=== PATIENT | male | born 1965 | race Native Hawaiian/Other Pacific Islander ===

== ENCOUNTER 2016-06-29 12:47 | Outpatient (CLI) | payer OTHER | END 2016-06-29 12:48 | disposition home or self-care (01) | DX: M94.261 Chondromalacia, right knee (principal); M25.761 Osteophyte, right knee; M94.262 Chondromalacia, left knee; M25.762 Osteophyte, left knee; S83.241A Other tear of medial meniscus, current injury, right knee, initial encounter; S83.242A Other tear of medial meniscus, current injury, left knee, initial encounter ==

== ENCOUNTER 2017-07-13 17:53 | Emergency (ER) | payer OTHER ==
[2017-07-13] MEDS ORDERED: AMOXICILLIN 250 MG CAPSULE PO STA (18:33)
--- NOTE | 2017-07-13 18:35 | ED Physician Documentation ---
PD HPI HEENT FB - Chief complaint Chief Complaint: Heent - History obtained from History obtained from: Patient - History of Present Illness Timing - onset: Other (He has had cough and cold symptoms more recently he has had right ear pain and he was digging out the right ear with a Q-tip and started to get some blood on the Q-tip. His hearing is muffled in that ear on the right. No fevers.) Review of Systems Constitutional: denies: Fever, Chills Ears: reports: Loss of hearing, Ear pain, Drainage/discharge Nose: reports: Rhinorrhea / runny nose, Congestion Throat: denies: Sore throat PD PAST MEDICAL HISTORY - Past Medical History Cardiovascular: Hypertension, High cholesterol GI: GERD - Past Surgical History Past Surgical History: Yes - Present Medications Home Medications: Ambulatory Orders Medication Instructions Recorded Confirmed Fluticasone [Flonase] 04/26/13 04/26/13 Lisinopril 20 mg PO DAILY 04/26/13 04/26/13 Meloxicam [Mobic] 0 mg PO DAILY 04/26/13 04/26/13 Simvastatin 20 mg PO DAILY 04/26/13 04/26/13 hydroCHLOROthiazide [Hydrodiuril] 25 mg PO DAILY 04/26/13 04/26/13 Famotidine [Pepcid] 20 mg PO BID #60 tablet 05/22/15 Omeprazole 05/22/15 Omeprazole [Prilosec] 20 mg PO DAILY #30 capsule. 05/22/15 Amoxicillin 500 mg PO TID #30 capsule 07/13/17 Ofloxacin [Floxin] 5 drops RIGHTEAR BID 7 Days drops 07/13/17 - Allergies Allergies/Adverse Reactions: Allergies Allergy/AdvReac Type Severity Reaction Status Date / Time No Known Drug Allergies Allergy Verified 04/26/13 08:54 - Social History Does the pt smoke?: No Smoking Status: Never smoker Does the pt drink ETOH?: Yes PD ED PE NORMAL - Vitals Vital signs reviewed: Yes - General General: Alert and oriented X 3, No acute distress - HEENT HEENT: PERRL, EOMI, Other (He has right otitis media, no obvious perforation but there is some dried blood in the canal more consistent with abrasion from the Q-tip than anything else.) - Neck Neck: Supple, no meningeal sign, No bony TTP - Neuro Neuro: Alert and oriented X 3, Normal speech - Psych Psych: Normal mood, Normal affect Results - Vitals Vitals: Vital Signs - 24 hr 07/13/17 18:05 Temperature 36 C L Heart Rate 102 H Respiratory 16 Rate Blood Pressure 135/94 H O2 Saturation 97 Oxygen O2 Source Room air Departure - Departure Disposition: Home, Self Care Clinical Impression: ROM (right otitis media) Qualifiers: Otitis media type: suppurative Chronicity: acute Recurrence: not specified as recurrent Spontaneous tympanic membrane rupture: without spontaneous rupture Qualified Code(s): H66.001 - Acute suppurative otitis media without spontaneous rupture of ear drum, right ear Condition: Good Record reviewed to determine appropriate education?: Yes Instructions: ED Otitis Media Acute Adult Prescriptions: Amoxicillin 500 mg PO TID #30 capsule Ofloxacin [Floxin] 5 drops RIGHTEAR BID 7 Days drops Comments: Follow-up with your doctor in 1 week. Return if worse. Your blood pressure was elevated today on check into the emergency department. This does not mean that you have hypertension, it is a common phenomenon to come to the emergency department and have elevated blood pressure. I recommend that you see your primary care physician within the week to have it rechecked when you are feeling better.
[2017-07-13 18:53] VITALS: BP 148/98
== END 2017-07-13 18:51 | disposition home or self-care (01) ==
LOC: ED 17:53
DX: H66.001 Acute suppurative otitis media without spontaneous rupture of ear drum, right ear (principal); I10 Essential (primary) hypertension; E78.00 Pure hypercholesterolemia, unspecified
CPT/HCPCS: 99283; A9270

== ENCOUNTER 2019-01-15 09:03 | Emergency (ER) | payer OTHER ==
--- NOTE | 2019-01-15 09:11 | ED Physician Documentation ---
PD HPI CHEST PAIN - Stated complaint Stated Complaint: CP - History obtained from History obtained from: Patient - History of Present Illness Timing - onset: How many hours ago (2-3), Today Timing - onset during: Sleep (Upon awakening from sleep he noticed a feeling of pressure and discomfort in his chest. It did improve with sitting up some but not completely resolved. He was concerned about his blood pressure and took it and was elevated at 180 systolic. He has had similar symptoms in the mornings intermittently over the last couple of weeks. He has not noticed any symptoms during the day nor any with walking around or daily activity. He does not really do any exertional activity per se. He has not had any cough or cold symptoms. There is no pedal edema no calf pains. No recent travel (he had gone to the [facility] about 3 months ago).) Timing - duration: Minutes Timing - details: Abrupt onset, Still present (improved but not completely gone.) Quality: Pressure, Tightness Location: Substernal Radiation: No: Jaw, Neck Improved by: Other (sitting up) Worsened by: No: Inspiration, Movement Associated symptoms: Shortness of air. No: Nausea, Feeling faint / dizzy, General Weakness, Palpitations, Cough Similar symptoms before: No diagnosis (few episodes in AMs when awakening. No symptoms during the day.) Recently seen: Clinic (couple weeks ago for routine, and had BP med changed to combination lisinopril/HCTZ from separate meds, but does not think the dose was changed.) Review of Systems Constitutional: denies: Fever, Chills, Myalgias Nose: denies: Rhinorrhea / runny nose, Congestion Throat: denies: Sore throat Cardiac: reports: Chest pain / pressure. denies: Palpitations, Pedal edema, Calf pain Respiratory: denies: Cough, Wheezing GI: denies: Abdominal Pain, Nausea, Vomiting, Diarrhea, Bloody / black stool Musculoskeletal: denies: Extremity swelling Neurologic: denies: Focal weakness, Near syncope PD PAST MEDICAL HISTORY - Past Medical History Cardiovascular: Hypertension, High cholesterol GI: GERD - Past Surgical History Past Surgical History: Yes - Present Medications Home Medications: Ambulatory Orders Medication Instructions Recorded Confirmed Fluticasone [Flonase] 04/26/13 04/26/13 Lisinopril 20 mg PO DAILY 04/26/13 04/26/13 Meloxicam [Mobic] 0 mg PO DAILY 04/26/13 04/26/13 Simvastatin 20 mg PO DAILY 04/26/13 04/26/13 hydroCHLOROthiazide [Hydrodiuril] 25 mg PO DAILY 04/26/13 04/26/13 Famotidine [Pepcid] 20 mg PO BID #60 tablet 05/22/15 Omeprazole 05/22/15 Omeprazole [Prilosec] 20 mg PO DAILY #30 capsule. 05/22/15 Amoxicillin 500 mg PO TID #30 capsule 07/13/17 Ofloxacin [Floxin] 5 drops RIGHTEAR BID 7 Days drops 07/13/17 Sucralfate [Carafate] 1 gm PO QPM #20 tablet 01/15/19 - Allergies Allergies/Adverse Reactions: Allergies Allergy/AdvReac Type Severity Reaction Status Date / Time No Known Drug Allergies Allergy Verified 04/26/13 08:54 - Social History Does the pt smoke?: No Smoking Status: Never smoker Does the pt drink ETOH?: Yes Does the pt have substance abuse?: No - Immunizations Immunizations are current?: Yes PD ED PE NORMAL - Vitals Vital signs reviewed: Yes - General General: Alert and oriented X 3, No acute distress, Well developed/nourished - HEENT HEENT: Moist mucous membranes, Pharynx benign - Neck Neck: Supple, no meningeal sign, No adenopathy - Cardiac Cardiac: RRR, No murmur - Respiratory Respiratory: Clear bilaterally - Abdomen Abdomen: Normal bowel sounds, Soft, Non tender, Non distended, No organomegaly - Derm Derm: Normal color, Warm and dry - Extremities Extremities: No tenderness to palpate, Normal ROM s pain, No edema, No calf tenderness / cord - Neuro Neuro: Alert and oriented X 3, No motor deficit, Normal speech Eye Opening: Spontaneous Motor: Obeys Commands Verbal: Oriented GCS Score: 15 Results - Vitals Vitals: Vital Signs - 24 hr 01/15/19 01/15/19 01/15/19 09:15 09:38 10:22 Temperature 36.7 C Heart Rate 67 65 65 Respiratory 18 19 19 Rate Blood Pressure 156/92 H 144/98 H 157/106 H O2 Saturation 99 95 97 01/15/19 10:31 Temperature Heart Rate 67 Respiratory 20 Rate Blood Pressure 151/109 H O2 Saturation 95 Oxygen O2 Source Room air - EKG (time done) presentation Rhythm: NSR Brick: Normal Intervals: Normal MI QRS: Normal Ischemia: Normal ST segments. No: ST elevation c/w ischemia, ST depression, T wave inversion - Labs Labs: Laboratory Tests 01/15/19 01/15/19 01/15/19 09:15 09:15 09:53 WBC 7.2 RBC 5.25 Hgb 15.5 Hct 45.7 MCV 87.0 MCH 29.5 MCHC 33.9 RDW 12.6 Plt Count 204 MPV 9.5 Neut # (Auto) 4.7 Lymph # (Auto) 1.6 Scott # (Auto) 0.5 Eos # (Auto) 0.3 Baso # (Auto) 0.1 Absolute Nucleated RBC 0.00 Nucleated RBC % 0.0 Sodium 137 Potassium 3.7 Chloride 103 Carbon Dioxide 24 Anion Gap 10.0 BUN 19 Creatinine 0.8 Estimated GFR (MDRD) 100 Glucose 132 H Calcium 9.1 Total Bilirubin 0.8 AST 28 ALT 40 Alkaline Phosphatase 57 Troponin I High Sens 5.1 B-Natriuretic Peptide Total Protein 7.4 Albumin 4.2 Globulin 3.2 Albumin/Globulin Ratio 1.3 Lipase 32 01/15/19 09:53 WBC RBC Hgb Hct MCV MCH MCHC RDW Plt Count MPV Neut # (Auto) Lymph # (Auto) Scott # (Auto) Eos # (Auto) Baso # (Auto) Absolute Nucleated RBC Nucleated RBC % Sodium Potassium Chloride Carbon Dioxide Anion Gap BUN Creatinine Estimated GFR (MDRD) Glucose Calcium Total Bilirubin AST ALT Alkaline Phosphatase Troponin I High Sens B-Natriuretic Peptide 19 Total Protein Albumin Globulin Albumin/Globulin Ratio Lipase - Rads (name of study) chest xray Radiology: Prelim report reviewed (no acute process), See rad report PD MEDICAL DECISION MAKING - ED course Complexity details: re-evaluated patient (moderate improvement with GI cocktail. Can try NTG as well. ), considered differential (pattern suggests reflux. Will eval ECG, CXR, trop. ), d/w patient Departure - Departure Disposition: 01 Home, Self Care Clinical Impression: Chest discomfort Condition: Stable Record reviewed to determine appropriate education?: Yes Instructions: ED Chest Pain Atypical Unkn Cause Follow-Up: ADDY MORROW [Primary Care Provider] - Prescriptions: Sucralfate [Carafate] 1 gm PO QPM #20 tablet Comments: Your EKG and chest x-ray and blood tests are normal without any signs of heart failure or heart attack, fluid in the lungs, collapsed lung or pneumonia, electrolyte problems or anemia. Your symptoms and occurring in the mornings as a do, can be suggestive of some reflux or gastritis. Continue your current usual medicines. Add sucralfate at just before bedtime and see if that helps not have this in the mornings. Do that nightly for a week or 2 at least. Follow-up with your primary care if symptoms persist. Return or follow-up with your primary if you have increasing symptoms or you notice similar symptoms during the day or with activity.
[2019-01-15] MEDS ORDERED: LIDOCAINE VISCOUS 2% 15 ML UDC MM STA (09:34)
[2019-01-15] MEDS ORDERED: MAG HYDROX/AL HYDROX/SIMETH 30 ML UDC PO STA (09:34)
[2019-01-15 09:52] LABS: ALBUMIN 4.2 g/dL (3.2-5.5); ALBUMIN/GLOBULIN RATIO 1.3 (1.0-2.2); BILIRUBIN,TOTAL 0.8 mg/dL (0.2-1.0); CALCIUM 9.1 mg/dL (8.5-10.3); CREATININE 0.8 mg/dL (0.6-1.2); TOTAL PROTEIN 7.4 g/dL (6.7-8.2)
[2019-01-15 09:57] LABS: BASOPHILS # (AUTO) 0.1 10^3/uL (0.0-0.1); EOSINOPHILS # (AUTO) 0.3 10^3/uL (0.0-0.7); EOSINOPHILS % (AUTO) 3.8 %; HGB - HEMOGLOBIN 15.5 g/dL (14.0-18.0); LYMPHOCYTES # (AUTO) 1.6 10^3/uL (1.5-3.5); LYMPHOCYTES % (AUTO) 21.9 %; MEAN CORPUSCULAR HEMOGLOBIN 29.5 pg (27.0-31.0); MEAN CORPUSCULAR HGB CONC 33.9 g/dL (32.0-36.0); MEAN PLATELET VOLUME 9.5 fL (7.4-11.4); MONOCYTES # (AUTO) 0.5 10^3/uL (0.0-1.0); MONOCYTES % (AUTO) 7.5 %; NEUTROPHILS # (AUTO) 4.7 10^3/uL (1.5-6.6); NEUTROPHILS % (AUTO) 65.4 %; PLT - PLATELET COUNT 204 10^3/uL (130-450); RED BLOOD COUNT 5.25 10^6/uL (4.70-6.10); RED CELL DISTRIBUTION WIDTH 12.6 % (12.0-15.0); WHITE BLOOD COUNT 7.2 x10^3/uL (4.8-10.8)
[2019-01-15] MEDS ORDERED: NITROGLYCERIN SL 0.4 MG TABLET SL STA (10:25)
--- NOTE | 2019-01-15 10:25 | XRAY Report ---
Reason: chest pressure/pain Procedure Date: 01/15/2019 Accession Number: [id number] / [id number] Procedure: XR - Chest 2 View X-Ray CPT Code: 79844 Final Report FULL RESULT: EXAM: CHEST RADIOGRAPHY EXAM DATE: 01/15/2019 10:02 AM HISTORY: chest pressure/pain COMPARISON: NONE TECHNIQUE: Two Views FINDINGS: Lungs/Pleura: The lungs are clear. No consolidation, edema or pleural effusion. Cardiomediastinal silhouette: Unremarkable accounting for technique. Other: Mildly limited by overlying material. IMPRESSION: No acute disease. RADIA
[2019-01-15 10:37] VITALS: BP 135/94
== END 2019-01-15 10:44 | disposition home or self-care (01) ==
LOC: ED 09:03
DX: R07.89 Other chest pain (principal); K21.9 Gastro-esophageal reflux disease without esophagitis; I10 Essential (primary) hypertension
CPT/HCPCS: 36415; 71046; 80053; 83690; 83880; 84484; 85025; 93005; 99284; A9270

== ENCOUNTER 2020-02-14 08:10 | Day surgery (SDC) | payer OTHER ==
[2020-02-14] MEDS ORDERED: LACTATED RINGERS 1,000 ML IV ONE (08:29)
[2020-02-14] MEDS ORDERED: MIDAZOLAM 2 MG/2 ML VIAL ONE (10:02)
[2020-02-14] MEDS ORDERED: fentaNYL 250 MCG/5 ML VIAL ONE (10:02)
[2020-02-14] MEDS ORDERED: LACTATED RINGERS 500 ML IV ONE ×2 (10:35)
[2020-02-14 11:09] VITALS: BP 127/91
== END 2020-02-14 08:11 | disposition home or self-care (01) ==
LOC: SDS 08:10
PROVIDERS: ATTEND Internal Medicine Gastroenterology
PROC: 0DBL8ZZ Excision of Transverse Colon, Via Natural or Artificial Opening Endoscopic (ICD-10-PCS; 2020-02-14)
PROC: 0DBM8ZZ Excision of Descending Colon, Via Natural or Artificial Opening Endoscopic (ICD-10-PCS; 2020-02-14)
PROC: 0DBK8ZZ Excision of Ascending Colon, Via Natural or Artificial Opening Endoscopic (ICD-10-PCS; principal; 2020-02-14 09:15)
DX: Z12.11 Encounter for screening for malignant neoplasm of colon (principal); D12.2 Benign neoplasm of ascending colon; D12.3 Benign neoplasm of transverse colon; D12.4 Benign neoplasm of descending colon; K57.30 Diverticulosis of large intestine without perforation or abscess without bleeding; Z80.0 Family history of malignant neoplasm of digestive organs; I10 Essential (primary) hypertension; G47.30 Sleep apnea, unspecified; K21.9 Gastro-esophageal reflux disease without esophagitis
CPT/HCPCS: 45380; 45385; J3010; J7120

== ENCOUNTER 2022-09-19 12:37 | Outpatient (CLI) | payer OTHER ==
--- NOTE | 2022-09-19 13:42 | Sleep Patient Instructions ---
Sleep Center Visit Summary - Patient Visit Information Reason for Visit: Initial consult - Patient Instructions Additional Instructions: You will continue with BIPAP therapy with pressure set at 13/12 cmH2O. A supply prescription will be updated with your DME and update your BIPAP machine. We encourage you to continue to try to lose weight. Please call us to make a follow up appointment with the sleep care office one month after getting new device. - Clinic Information Contact: [facility] [address] [place] [address] [email or web address] T: [phone]
--- NOTE | 2022-09-19 13:46 | SLEEP CARE CONSULTATION ---
Information from patient questionnaire entered by Lamar Donnelly. I have reviewed and concur with the information entered by Lamar Donnelly. This document represents the service I personally performed and the decisions made by me, Kaykay Paige ARNP. History of Present Illness Service Date and Time: 09/19/2022 1237 Reason for Visit: New patient, Previously diagnosed sleep apnea, sleep apnea on CPAP therapy Chief Complaint: reports: Unrefreshed sleep, Snoring, Observed pauses in breathing, Other (NEED TO UPDATE CPAP) Date of Onset: ABOUT A YR Usual bedtime: AFTER MIDNIGHT Time it takes to fall asleep: NOT LONG Snores at night: Yes Observed to quit breathing while asleep: Yes Sleeps alone due to snoring: No Number of times waking at night: 1 Reasons for waking at night: reports: Pain, Bathroom Toss, Turn, or Twitch while sleeping: Yes Recalls having dreams: Yes (sometimes) Usually gets out of bed at: BETWEEN 1-10AM Feels refreshed in the morning: Yes Morning headache: No Sleepy or fatigued during the day: No Ever fallen asleep while driving: No Takes day naps: Yes Dreams during day naps: Yes Prior sleep studies: Yes Year and Where: 2011 [facility] in [place], [place] Additional HPI information: MITA DICKERSON was previously diagnosed to have severe, AHI 42.6, obstructive sleep apnea-hypopnea syndrome as seen in sleep study dated04/23/2011 by [facility] and comes in today to establish care for BIPAP therapy. - Parasomnia Symptoms Ever been unable to move upon waking from sleep: No Walks in sleep: No Talks in sleep: Yes Ever acted out dreams in sleep: Yes Ever felt weak in the knees when startled or emotional: No Bothered by creepy, crawly, restless sensations in legs: No Problems with memory or concentration: No CPAP Compliance Data - Data Reviewed with Patient Average duration of nightly device use: 6.5 hours Compliance rate %: 95 (last 90/ days used) Current pressure setting (cmH2O): 1312 Average residual AHI: 3.2 Compliance data discussion: He has an old ResMed S9 that is over 10 years old. He gets his irregularly but is not sure of the company name. He is using a full face mask, medium size, [employer] Quattro. He does have backup supplies. Subjective Patient concerns: denies: aerophagia, mask discomfort, air blowing in eyes, mask leak noise, condensation in mask/hose, nasal congestion, dry mouth, nose, throat, epistaxis Observed to snore while using device: No (occasional snore noted) Current pressure setting perceived as: comfortable On therapy, patient: reports: sleeping better, awakening more refreshed, being more awake and alert during the day, more rested overall. 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 Patient is and lives in [place]. Have you smoked in the past 12 months: No Alcohol use: Yes Alcohol amount and frequency: occasionally, 3 beers or shots weekly Caffeine use: Yes Caffeine amount and frequency: 2-3 ONCE A WEEK Family History Family history of sleep disordered breathing: No Allergies and Home Medications Known drug allergies: No Drug allergies reviewed: Yes Home medication list reviewed: Yes Allergy and home medication list: Allergies No Known Drug Allergies Allergy (Verified 09/18/22 13:33) Medications: Celebrex 200 mg Claritin 10 mg Flonase 50 mg HCTZ 25 mg Lisinopril 40 mg Meclizine 25 mg Metformin 500 mg daily Review of Systems Weight gain over past 5 years: 20 Weight loss over past 5 years: 5 Cardiovascular: reports: high blood pressure, leg or foot swelling Gastrointestinal: reports: heartburn Urinary: reports: frequency Neurological: reports: headaches, gait or balance problems Psychiatric: reports: anxiety, depression Ear/Nose/Throat: reports: nasal congestion, sinus problems, wisdom teeth removed Endocrine: reports: increased urination Musculoskeletal: reports: joint pain, back pain Immunologic: reports: sneezing Physical Exam Vital signs obtained and entered by: LAMAR Han MA Blood Pressure: 132/80 (LEFT ARM) Cuff size: regular Heart Rate: 105 O2 Saturation: 95 Height: 5 ft 4 in Weight: 218 lb 9.6 oz Body Mass Index: 37.5 BMI Classification: Obese Neck circumference: 18 Heart: regular rate and rhythm Lungs: clear bilaterally Impression and Plan 1. Obstructive Sleep Apnea-Hypopnea Syndrome, severe, with good treatment compliance and good apnea control. On BIPAP therapy, the patient has better sleep quality and is more rested overall. He comes in with a ResMed S9. The ST card is corrupted and we cannot obtain any information from it but were able to get 90-day data from his machine. The patients BIPAP is over 5 years old and of reasonable use. Thus, the CPAP will be updated. A DWO prescription will be made. Compliance guidelines for new device and follow up discussed. Patient's apnea severity and rationale for treatment to reduce apnea, improve sleep quality and reduce cardiovascular and cerebrovascular events was reviewed. I also reviewed the benefit of consistent device use of BIPAP for hypertension, diabetes, gastric reflux, depression and anxiety. 2. Obesity, unspecified. Currently patients BMI is 37.5. Obesity increases the risk of apnea, BIPAP pressure requirements and overall health risks especially cardiovascular and diabetes. Thus patient is advised to lose weight. * Continue BIPAP pressure at 13/12 cmH2O * Update machine * Update supplies * Notify me if snoring with mask or feeling that the pressure is too much or too little * Attempt to lose weight * Call this office if any problems using BIPAP * Return for follow up one month after obtaining new BIPAP, or sooner if concerns arise Counseling Topics: Spare mask, Weight loss health impact Visit Type: In Office Time Spent with Patient (minutes): 39 Provider Statement: I spent 100% of the Face to Face Visit with the patient with greater than 50% spent counseling the patient and coordination of care.
[2022-09-19 14:42] VITALS: BP 132/80
== END 2022-09-19 12:38 | disposition home or self-care (01) ==
LOC: SC 12:37
PROVIDERS: ATTEND Nurse Practitioner Family
DX: G47.33 Obstructive sleep apnea (adult) (pediatric) (principal); E66.9 Obesity, unspecified; Z68.37 Body mass index [BMI] 37.0-37.9, adult
CPT/HCPCS: 99203; 99212

== ENCOUNTER 2023-01-21 10:16 | Outpatient (CLI) | payer OTHER ==
--- NOTE | 2023-01-21 09:52 | SLEEP CARE CONSULTATION ---
Information from patient questionnaire entered by Lamar Donnelly. I have reviewed and concur with the information entered by Lamar Donnelly. This document represents the service I personally performed and the decisions made by me, Kaykay Paige ARNP. History of Present Illness Service Date and Time: 01/21/2023 0940 Previous diagnosis: Severe, Obstructive Sleep Apnea-Hypopnea Syndrome AHI: 42.6 (in 2011) Reason for follow up: first compliance after device update Equipment type: BiPAP (RESMED AirCurve 10, s/u 11/2022) Equipment obtained from: [employer] (getting supplies) Mask style: Full face (Quattro) Backup mask available: No (will keep old mask when replaced) Last cushion change: 31 days ago Prior sleep studies: Yes Year and Where: 2011 [facility] in [place], [place] HPI additional information: MITA DICKERSON was diagnosed to have severe, AHI 42.6, obstructive sleep apnea-hypopnea syndrome and returns via video appointment today for BIPAP therapy first compliance after updating device follow-up. Sleep Study - Results Prior sleep studies: Yes Year and Where: 2011 [facility] in [place], [place] CPAP Compliance Data - Data Reviewed with Patient Average duration of nightly device use: 7 HRS 3 MINS Compliance rate %: 83 (12/11/22-01/09/23; days used) Current pressure setting (cmH2O): 13/12 Average residual AHI: 3.1 Central apnea: 0.1 Obstructive apnea: 0.9 Hypopnea: 1.9 Average large leak: 3.7 L/min Subjective Patient concerns: denies: aerophagia, mask discomfort, air blowing in eyes, mask leak noise, condensation in mask/hose, nasal congestion, dry mouth, nose, throat, epistaxis Observed to snore while using device: No Current pressure setting perceived as: comfortable On therapy, patient: reports: sleeping better, awakening more refreshed, being more awake and alert during the day, more rested overall. denies: drowsiness while driving Initial [place] Sleepiness Scale score: 11 (09/19/22) Current Grant Sleepiness Scale score: 2 Allergies and Home Medications Known drug allergies: No Drug allergies reviewed: Yes Home medication list reviewed: Yes (no changes) Allergy and home medication list: Allergies No Known Drug Allergies Allergy (Verified 01/20/23 08:44) Review of Systems Review of systems same as previous: Yes (no changes) Physical Exam Vital signs obtained and entered by: KAYKAY TIRADO Blood Pressure: 140/85 (per pt) Height: 5 ft 4 in Weight: 215 lb (per pt) Body Mass Index: 36.8 BMI Classification: Obese Impression and Plan 1. Obstructive Sleep Apnea-Hypopnea Syndrome, mild, with good treatment compliance and good apnea control. On BIPAP therapy, the patient has better sleep quality and is more rested overall. He really likes his new device and feels like his therapy is better, he is more rested overall. Patient has significant improvement of their sleep apnea and is satisfied with current CPAP therapy. Patient denies problems with oral dryness, nasal congestion, epistaxis, skin irritation or aerophagia. Patient's apnea severity and rationale for treatment to reduce apnea, improve sleep quality and reduce cardiovascular and cerebrovascular events was reviewed. I also reviewed the benefit of consistent device use of BIPAP for hypertension, diabetes, gastric reflux, depression/anxiety, and insulin resistance. 2. Obesity, unspecified. Currently patients BMI is 36.8. Obesity increases the risk of apnea, BIPAP pressure requirements and overall health risks especially cardiovascular and diabetes. Thus patient is advised to lose weight. * Continue BIPAP pressure at 13/12 cmH2O * Notify me if snoring with mask or feeling that the pressure is too much or too little * Attempt to lose weight * Call this office if any problems using BIPAP * Return for follow up in 1 year, or sooner if concerns arise Counseling Topics: Spare mask, Weight loss health impact Follow up with Sleep Care in: 1 year Visit Type: Telehealth Video Video Type: [place] Patient Location: Home Location of Provider: Office Patient agrees and consents to this telehealth visit type: Yes Patient agrees to have their insurance billed: Yes Time Spent with Patient (minutes): 12 Provider Statement: I spent 100% of the Telehealth Video Call with the patient with greater than 50% spent counseling the patient and coordination of care.
[2023-01-21 09:53] VITALS: BP 140/85
== END 2023-01-21 10:17 | disposition home or self-care (01) ==
LOC: SC 10:16
PROVIDERS: ATTEND Nurse Practitioner Family
DX: G47.33 Obstructive sleep apnea (adult) (pediatric) (principal); E66.9 Obesity, unspecified; Z68.36 Body mass index [BMI] 36.0-36.9, adult